=== PATIENT | male | born 1950 | race Caucasian/White ===

== ENCOUNTER 2021-02-28 19:47 | Emergency (ER) | payer OTHER ==
[~2021-02-28] VITALS: Ht 172.7 cm; Wt 88.1 kg
[2021-02-28 20:36] LABS: BASO # 0.03 K/mm3 (0.02-0.10); EOS % 1.4 % (0.0-4.0); HEMOGLOBIN 14.2 g/dL (13.5-18.0); LYMPH# 0.98 K/mm3 (1.50-4.00); MEAN CELL VOLUME 92 fl (78-100); MEAN CORPUSCULAR HEMOGLOBIN 30 pg (27-31); MEAN CORPUSCULAR HGB CONC 33 g/dL (33-37); MEAN PLATELET VOLUME 10.3 fl (7.4-10.4); MONO # 0.39 K/mm3 (0.20-0.80); NEU # 5.53 K/mm3 (1.40-6.50); PLATELET COUNT 188 K/mm3 (130-400); RED BLOOD COUNT 4.68 M/mm3 (4.20-5.60); RED CELL DISTRIBUTION WIDTH 12.5 % (11.5-14.5); WHITE BLOOD COUNT 7.1 K/mm3 (4.8-10.8)
[2021-02-28 20:47] LABS: ALBUMIN 4.1 g/dL (3.4-4.8)
[2021-02-28 20:48] LABS: CALCIUM 9.2 mg/dL (8.3-10.5)
[2021-02-28 20:50] LABS: TOTAL PROTEIN 7.3 g/dL (6.2-8.1)
[2021-02-28 20:51] LABS: TOTAL BILIRUBIN 0.3 mg/dL (0.2-1.2)
[2021-02-28 22:24] VITALS: BP 202/95
== END 2021-02-28 22:24 | disposition short-term general hospital (02) ==
LOC: ED 19:47
PROVIDERS: Nurse Practitioner
DX: S72.402A Unspecified fracture of lower end of left femur, initial encounter for closed fracture (principal); W01.0XXA Fall on same level from slipping, tripping and stumbling without subsequent striking against object, initial encounter
CPT/HCPCS: J0360; J1885; L1830

== ENCOUNTER 2021-04-20 08:54 | Outpatient (RCR) | payer OTHER | END 2021-05-08 | disposition still patient (30) | LOC: PT | DX: S72.492D Other fracture of lower end of left femur, subsequent encounter for closed fracture with routine healing (principal); X58.XXXD Exposure to other specified factors, subsequent encounter ==

== ENCOUNTER 2021-05-09 08:30 | Outpatient (RCR) | payer OTHER | END 2021-06-08 | disposition still patient (30) | LOC: PT | DX: S72.492D Other fracture of lower end of left femur, subsequent encounter for closed fracture with routine healing (principal) ==

== ENCOUNTER 2021-06-13 08:28 | Outpatient (RCR) | payer OTHER | END 2021-06-22 08:32 | disposition home or self-care (01) | LOC: PT 08:28 | DX: S72.492D Other fracture of lower end of left femur, subsequent encounter for closed fracture with routine healing (principal); X58.XXXD Exposure to other specified factors, subsequent encounter ==

== ENCOUNTER 2023-07-31 17:50 | Emergency (ER) | payer OTHER ==
[~2023-07-31 17:50] MED LIST: NS 1,000 ML IV ONE; cefTRIAXone 1 G in Water For Injection,Sterile 10 ML IV ONE
[2023-09-22 11:38] LABS: BASO # 0.01 K/mm3 (0.02-0.10); HEMATOCRIT 42.5 % (42.0-52.0); HEMOGLOBIN 14.1 g/dL (13.5-18.0); LYMPH# 0.82 K/mm3 (1.50-4.00); MEAN CELL VOLUME 92 fl (78-100); MEAN CORPUSCULAR HEMOGLOBIN 30 pg (27-31); MEAN CORPUSCULAR HGB CONC 33 g/dL (33-37); MEAN PLATELET VOLUME 10.1 fl (7.4-10.4); MONO # 0.71 K/mm3 (0.20-0.80); NEU # 5.27 K/mm3 (1.40-6.50); PLATELET COUNT 149 K/mm3 (130-400); RED BLOOD COUNT 4.64 M/mm3 (4.20-5.60); RED CELL DISTRIBUTION WIDTH 12.5 % (11.5-14.5); WHITE BLOOD COUNT 6.8 K/mm3 (4.8-10.8)
[2023-09-22 11:40] LABS: URINE APPEARANCE CLEAR (CLEAR); URINE COLOR DARK YELLOW (YELLOW)
[2023-09-22 11:41] LABS: PH-URINE 5.5 (5.0 - 8.0); URINE BILIRUBIN NEGATIVE (NEGATIVE); URINE GLUCOSE NEGATIVE (NEGATIVE); URINE KETONE NEGATIVE (NEGATIVE); URINE PROTEIN(semi-quant) 1+ (NEGATIVE)
[2023-09-22 11:42] LABS: URINE BLOOD NEGATIVE (NEGATIVE); URINE LEUKOCYTE ESTERASE NEGATIVE (NEGATIVE); URINE MUCUS PRESENT (NOT PRESENT); URINE NITRATE NEGATIVE (NEGATIVE); URINE WBC 0-1 /hpf (0-3)
[2023-09-22 11:49] LABS: ALBUMIN 3.9 g/dL (3.4-4.8); ALT/SGPT 26 U/L (0-55); AST-SGOT 21 U/L (5-34); CALCIUM 8.6 mg/dL (8.3-10.5); CARBON DIOXIDE 25 mmol/L (23-31); GLUCOSE 128 mg/dL (75-110); SODIUM 139 mmol/L (136-145); TOTAL BILIRUBIN 0.4 mg/dL (0.2-1.2); TROPONIN-I < 0.030 ng/mL (0.00-0.033)
== END 2023-07-31 21:08 ==
LOC: ED 17:50
PROVIDERS: Family Medicine
DX: N39.0 Urinary tract infection, site not specified (principal); E86.0 Dehydration
CPT/HCPCS: J0696; J7030